=== PATIENT | male | born 1960 | race Two or more races ===

== ENCOUNTER 2018-09-09 09:41 | Emergency (ER) | payer OTHER ==
[~2018-09-09] VITALS: Ht 165.1 cm; Wt 63.5 kg
[~2018-09-09 09:41] MED LIST: CEFADROXIL500 MG PO; FENOFIBRATE134 MG; HUMALOG MIX 75/23 ML; LANTUS100 U/ML; LIPITOR20 MG; NEURONTIN600 MG; PREDNISONE5 MG/DOSE- PO; SEROQUEL200 MG; TRAMADOL HCL-AP1 TAB; TRAMADOL HCL50 MG PO; TRICOR145 MG; ULTRACET PO; ZOLOFT100 MG
[2018-09-09] MEDS ORDERED: GLUCOPHAGE XR500 MG (10:04)
[2018-09-09] MEDS ORDERED: COZAAR25 MG (10:04)
== END 2018-09-09 13:11 | disposition home or self-care (01) ==
LOC: ER 09:41
DX: M54.5 Low back pain (principal)

== ENCOUNTER 2019-05-29 15:24 | Emergency (ER) | payer OTHER ==
[~2019-05-29] VITALS: Ht 165.1 cm; Wt 63.5 kg
[~2019-05-29 15:24] MED LIST changes: +COZAAR25 MG; +GLUCOPHAGE XR500 MG
== END 2019-05-29 19:17 | disposition home or self-care (01) ==
LOC: ER 15:24
DX: E11.65 Type 2 diabetes mellitus with hyperglycemia (principal); M79.641 Pain in right hand

== ENCOUNTER 2024-04-21 22:46 | Emergency (ER) | payer OTHER ==
[~2024-04-21] VITALS: Ht 165.1 cm; Wt 63.5 kg
[2024-04-21] MEDS ORDERED: FAMOtidine 10 MG/ML (4ML VIAL) IV ONE (23:45)
[2024-04-21] MEDS ORDERED: 0.9 % SODIUM CHLORIDE 1,000 ML IV ONE (23:45)
[2024-04-21] MEDS ORDERED: ONDANSETRON HCL 2 MG/ML VIAL IV ONE (23:45)
[2024-04-21] MEDS ORDERED: MORPHINE SULFATE 4 MG/ML CARTRIDGE IV ONE (23:45)
[2024-04-22 00:53] LABS: HEMATOCRIT 33.3 % (39.0-48.0); MEAN CELL VOLUME 84.6 fL (80.0-100.00); MEAN CORPUSCULAR HGB CONC 33.8 g/dl (32.0-36.0); PLATELET COUNT 269 K/uL (150-450); RED BLOOD COUNT 3.94 M/uL (4.00-6.00); RED CELL DISTRIBUTION WIDTH 13.5 % (11.5-14.5)
[2024-04-22 01:08] LABS: HEMOGLOBIN 11.2 g/dL (13-16.00); MEAN CORPUSCULAR HEMOGLOBIN 28.4 pg (27.00-32.0)
[2024-04-22 01:16] LABS: INR 0.97; PROTHROMBIN TIME 10.6 SECONDS (9.0-11.5)
[2024-04-22 01:19] LABS: PARTIAL THROMBOPLASTIN TIME < 20.0 SECONDS (22.0-34.0)
[2024-04-22 01:21] LABS: ALBUMIN 3.9 gm/dL (3.4-5.0); BILIRUBIN TOTAL 0.41 mg/dL (0.3-1.2); CALCIUM 9.3 mg/dL (8.5-10.1); CREATININE SERUM 1.84 mg/dL (0.70-1.30); GFR 37.34; GLOBULINA 3.7 G/DL (2.4-3.5); POTASSIUM 5.16 mEq/L (3.5-5.1); TOTAL PROTEIN 7.6 gm/dL (6.4-8.2)
[2024-04-22 01:38] LABS: ABG PH 7.396 (7.35-7.45); ABG PO2 79.5 mmHg (80-100); ABG pCO2 37.7 mmHg (35-45); BASE EXCESS -1.8 mmol/l; BICARBONATE 22.6 mmol/l (23-25); SaO2 95.5 %
[2024-04-22 01:39] LABS: Tco2 23.8 mmol/l; allen test SATISFACTORY; o2 21 %; puncture site RADIAL RIGHT
[2024-04-22] MEDS ORDERED: METHYLPREDNISOLONE SOD SUCC 125 MG VIAL IV STA (03:45)
[2024-04-22] MEDS ORDERED: MEPERIDINE HCL/PF 50 MG/ML VIAL IM STA (03:45)
[2024-04-22] MEDS ORDERED: ALBUTEROL SULFATE 3 ML/2.5 MG AMPUL.NEB IH SCH (04:00)
[2024-04-22 09:17] LABS: ABG PH 7.323 (7.35-7.45); ABG PO2 92.3 mmHg (80-100); ABG pCO2 38.1 mmHg (35-45); BASE EXCESS -6.1 mmol/l; BICARBONATE 19.3 mmol/l (23-25); SaO2 96.2 %; Tco2 20.5 mmol/l; allen test SATISFACTORY; puncture site RADIAL RIGHT
[2024-04-22 09:18] LABS: o2 21 %
[2024-04-22 10:17] LABS: URINE APPEARANCE Clear; URINE BILIRRUBIN Negative (NEGATIVE); URINE BLOOD Negative; URINE COLOR Yellow; URINE KETONE Trace (NEGATIVE); URINE LEUKOCYTE Negative; URINE NITRATE Negative; URINE UROBILINOGEN 0.2 E.U./dl
[2024-04-22 10:20] LABS: URINE BACTERIA 42.8 uL (0.0-1933); URINE EPITHELIAL CELLS 3.3 uL (0.0-38.8); URINE RBC 2.4 uL (0.0-20.8)
[2024-04-22 10:22] LABS: URINE CAST 1.37 uL (0.0-1.40); URINE GLUCOSE >=1000 MG/DL (NEGATIVE); URINE PROTEIN 100 (NEGATIVE); URINE WBC 1.5 uL (0.0-23.2)
[2024-04-22 10:31] VITALS: BP 183/93; O2SAT 98
== END 2024-04-22 10:32 | disposition home or self-care (01) ==
LOC: ER 22:47
PROVIDERS: General Practice
DX: S29.8XXA Other specified injuries of thorax, initial encounter (principal); S27.329A Contusion of lung, unspecified, initial encounter; S22.39XA Fracture of one rib, unspecified side, initial encounter for closed fracture; W19.XXXA Unspecified fall, initial encounter; Y93.89 Activity, other specified; Y92.89 Other specified places as the place of occurrence of the external cause; Y99.8 Other external cause status; I10 Essential (primary) hypertension; E11.9 Type 2 diabetes mellitus without complications; Z79.84 Long term (current) use of oral hypoglycemic drugs; Z88.6 Allergy status to analgesic agent
CPT/HCPCS: 29130; 36415; 70450; 71250; 72125; 72170; 73130; 82803; 93005; 93041; 94644; 96365; 96366; 96372; 99284; J2270; J2405; J3490 ×3; J7030